=== PATIENT | female | born 1975 | race Two or more races ===

== ENCOUNTER 2017-01-04 11:19 | Day surgery (SDC) | payer BC ==
[2017-01-02 13:42] VITALS: BMI 30.9
[2017-01-04] MEDS ORDERED: BUPIVACAINE HCL/PF 0.25% (2.5MG/ML) 10 ML VIAL ONE (13:05)
[2017-01-04] MEDS ORDERED: LIDOCAINE HCL 1%, 10 MG/ML (20ML VIAL) ONE (13:05)
[2017-01-04] MEDS ORDERED: ceFAZolin SODIUM 1 GM VIAL IVPB ONE (13:39)
--- NOTE | 2017-01-04 14:33 | OP ---
Operative Note - Note: Operative Date: 01/04/17 Pre-Operative Diagnosis: ceccal polyp Operation: laparoscopic partial ceccectomy Post-Operative Diagnosis: Same as Pre-op Surgeon: Carson Álvarez Curer Acid Drum: Lizzy Cerrato Anesthesia: General Estimated Blood Loss (mls): 5 Operative Report Dictated: Yes
--- NOTE | 2017-01-04 14:54 | SURG ---
Surgery Creative Art Director Note Creative Art Director: Lizzy Cerrato PA-C Date of Service: 01/04/17 Diagnosis: ceccal polyp Procedure: laparoscopic partial ceccectomy I was present for the entirety of the operative procedure. For further detail, please refer to operative report. Visit type - Case Type Case Type: Scheduled Admission - Emergency Emergency Visit: No - New patient This patient is new to me today: Yes Date on this admission: 01/04/17 - Critical Care Critical Care patient: No
[2017-01-04] MEDS ORDERED: ONDANSETRON 4 MG/2 ML VIAL IVPUSH PRN (15:33)
[2017-01-04] MEDS ORDERED: oxyCODONE HCL 5 MG TABLET PO PRN (15:33)
[2017-01-04] MEDS ORDERED: LACTATED RINGERS SOLUTION 1,000 ML IV SCH (15:45)
[2017-01-04] MEDS ORDERED: RANITIDINE HCL 50 MG/2 ML VIAL ONE (16:26)
[2017-01-04 18:40] VITALS: BP 121/69; PULSE 86
[2017-01-04 19:58] VITALS: TEMP 98.2
--- NOTE | 2017-01-05 10:26 | OP ---
DATE OF OPERATION: 01/04/2017 PREOPERATIVE DIAGNOSIS: Cecal polyp. POSTOPERATIVE DIAGNOSIS: Cecal polyp. PROCEDURE: Laparoscopic partial cecectomy and appendectomy. SURGEON: Carson Álvarez MD SECOND RIGGER: DARRELL Dutta COMPLICATIONS: None. ESTIMATED BLOOD LOSS: Bleeding was minimal. SPECIMEN: Partial cecum and appendix. CONDITION: The patient tolerated the procedure well. INDICATION: This is a 41-year-old female who presented with a cecal polyp which was identified during colonoscopy, at the base of the appendix; for which, she was referred for surgical evaluation and resection. DESCRIPTION OF PROCEDURE: The patient was taken to the operating room and placed in supine position. After the induction of general anesthesia, she was prepped and draped in the usual sterile fashion. After a standard timeout, the operation was begun with a standard periumbilical incision which was made in the superior aspect of the umbilicus, and the standard Vandana approach was used to enter the peritoneal cavity without complications. A 12-mm port was inserted through this incision, and insufflation to a pressure of 15 mmHg was accomplished. Next, under direct vision, two 5-mm ports were introduced, one in the suprapubic position and one in the left lower quadrant. The appendix was then identified and visualized. The cecum was then mobilized in order to allow for manipulation of the cecum. The mesoappendix was divided with the LigaSure. The cecum was also mobilized with LigaSure, and then, at this point, an Endo CLARISSA stapler purple cartridge was then used to divide the base of the cecum at the level of the internal of the terminal ileum. Care was taken to avoid narrowing the terminal ileum and the ileocecal valve. The specimen was then placed in an Endo Catch bag. Final check for hemostasis performed. The ports were then removed under direct vision. Specimen was brought out through the umbilical port with an Endo Catch bag. The fascia here was closed with 0 Vicryl suture. The skin was closed with 4-0 Monocryl. Dermabond was applied, and the patient was returned to the recovery room, awake, alert, in stable condition. She tolerated the procedure well. Stefani [id number]
--- NOTE | 2017-01-06 14:40 | PATH ---
Surgical Pathology Report Patient Name: AARTI DUENAS [facility]. Rec. #: [id number] /Age/Gender: 1975 (Age: 41) / F Account: [id number] Location: [facility] SURGICAL Taken: 01/04/2017 Received: 01/05/2017 Reported: 01/06/2017 Physicians: Stefani Iverson M.D. Specimen(s) Received APPENDIX,CECUM,POLYP OF CECUM Clinical History Mass of appendix Final Diagnosis CECUM AND APPENDIX, RESECTION: APPENDIX WITH FIBROUS OBLITERATION OF THE LUMEN, AND CECUM WITH REACTIVE FOLLICULAR HYPERPLASIA OF MUCOSA ASSOCIATED LYMPHOID TISSUE. NO ADENOMATOUS POLYP IS IDENTIFIED. NO RESIDUAL SESSILE SERRATED POLYP IS IDENTIFIED. Comment: The prior specimen [id number] was reviewed. No residual polyp is identified in the current specimen. Recommend follow up as clinically indicated. Electronically Signed Esteban Arreola M.D. Gross Description Received in formalin labeled "cecum, appendix, cecal polyp," is a 3.5 x 1.7 x 1.6 cm portion of cecum with a 3 cm in length attached vermiform appendix. The cecum displays a stapled margin of resection. The serosa is potts-pink and smooth. The cecal lumen contains abundant brown-green fecal material. No mass or polyp is identified. The cecal mucosa is potts with flattened folds. Sectioning of the appendix reveals unremarkable lumen. The wall of the appendix averages 0.1 cm in thickness. The specimen is entirely submitted in 7 cassettes as follows: 1-shave of staple line; [id number] submitted cecum; [id number] submitted appendix. /01/05/2017 [facility]01/05/2017
== END 2017-01-04 18:39 | disposition home or self-care (01) ==
LOC: JASU-SURG 11:19
PROVIDERS: ATTEND Surgery
PROC: 0DTJ4ZZ Resection of Appendix, Percutaneous Endoscopic Approach (ICD-10-PCS; 2017-01-04)
PROC: 0DBH4ZZ Excision of Cecum, Percutaneous Endoscopic Approach (ICD-10-PCS; principal; 2017-01-04 13:00)
DX: D12.0 Benign neoplasm of cecum (principal); D12.1 Benign neoplasm of appendix
CPT/HCPCS: 84703; 88307-TC; 94760

== ENCOUNTER 2022-05-22 04:57 | Emergency (ER) | payer BC ==
[2022-05-22 05:13] VITALS: BP 121/82; PULSE 90; RESP 18; TEMP 98.7; BMI 32.4
[2022-05-22] MEDS ORDERED: CIPROFLOXACIN 500 MG TABLET (RESTRICTED TO ID) PO ONE (05:30)
[2022-05-22] MEDS ORDERED: PHENAZOPYRIDINE HCL 100 MG TABLET (FP) PO ONE (05:30)
[2022-05-22] MEDS ORDERED: PHENAZOPYRIDINE HCL 100 MG TABLET (FP) ONE (05:34)
[2022-05-22] MEDS ORDERED: CIPROFLOXACIN 250 MG TABLET (RESTRICTED TO ID) PO ONE (05:35)
[2022-05-22 09:40] LABS: EPITHELIAL CELLS FEW /hpf
== END 2022-05-22 05:39 | disposition home or self-care (01) ==
LOC: FER 04:57
DX: R30.0 Dysuria (principal)
CPT/HCPCS: 81003; 81015; 81025; 87086; 99283-25

== ENCOUNTER 2022-09-15 04:16 | Emergency (ER) | payer BC ==
[2022-09-15 04:24] VITALS: BMI 29.1
[2022-09-15] MEDS ORDERED: SODIUM CHLORIDE 1,000 ML IV STA (04:44)
[2022-09-15 05:54] LABS: BASO % 0.4 % (0-2.0); EOS % 1.6 % (0-4.5); HEMATOCRIT 38.1 % (32.4-45.2); MCH 28.3 pg (25.7-33.7); MEAN CELL VOLUME 83.2 fl (80-96); MEAN PLT VOLUME 9.1 fl (7.5-11.1); MONO % 6.3 % (3.8-10.2); NEUT % 76.7 % (42.8-82.8); PLATELET COUNT 223 10^3/uL (134-434); RBC 4.58 M/mm3 (3.60-5.2); RDW 14.4 % (11.6-15.6); WHITE BLOOD COUNT 11.9 K/mm3 (4.0-10.0)
[2022-09-15 06:03] LABS: INR 1.06 (0.83-1.09); PROTHROMBIN TIME (PATIENT) 12.3 SEC (9.7-13.0)
[2022-09-15 06:05] LABS: ACTIVATED PTT 26.8 SECONDS (25.2-36.5)
[2022-09-15] MEDS ORDERED: ONDANSETRON 4 MG/2 ML VIAL IVPUSH ONE (06:13)
[2022-09-15] MEDS ORDERED: morphine CARPU-JECT 4 MG/1 ML DISP.SYRIN IVPUSH ONE (06:13)
[2022-09-15] MEDS ORDERED: ONDANSETRON 4 MG/2 ML VIAL ONE (06:20)
[2022-09-15] MEDS ORDERED: morphine SULFATE 4 MG/ML VIAL ONE (06:20)
[2022-09-15 06:47] LABS: EPI CELLS 8 /uL (0-25.1); HYALINE CASTS 0 /uL (0-3.1); PH,URINE 6.5 (5.0-8.0); URINE APPEARANCE CLEAR; URINE BACTERIA 166 /uL (0-1359); URINE BILIRUBIN NEGATIVE (NEGATIVE); URINE COLOR YELLOW; URINE GLUCOSE (UA) NEGATIVE (NEGATIVE); URINE KETONE NEGATIVE (NEGATIVE); URINE LEUK ESTERASE TRACE (NEGATIVE); URINE NITRITE NEGATIVE (NEGATIVE); URINE PROTEIN NEGATIVE (NEGATIVE); URINE RBC 30 /uL (0-23.9); URINE UROBILINOGEN 0.2 mg/dL (0.2-1.0); URINE WBC 11 /uL (0-25.8)
[2022-09-15 07:15] LABS: POTASSIUM 3.3 mmol/L (3.5-5.1)
[2022-09-15 07:17] LABS: CALCIUM 9.5 mg/dL (8.5-10.1)
[2022-09-15 07:18] LABS: ALBUMIN 4.1 g/dl (3.4-5.0); BLOOD UREA NITROGEN 13.5 mg/dL (7-18)
[2022-09-15 07:21] LABS: CREATININE 0.9 mg/dL (0.55-1.3)
[2022-09-15 07:22] LABS: TOT PROT 7.5 g/dl (6.4-8.2)
[2022-09-15 07:27] LABS: BILIRUBIN,TOTAL 0.5 mg/dL (0.2-1)
[2022-09-15 08:22] VITALS: TEMP 97.9
[2022-09-15 08:43] VITALS: BP 110/70; PULSE 72; RESP 16
== END 2022-09-15 08:43 | disposition home or self-care (01) ==
LOC: JER 04:16
PROC: 3E033GC Introduction of Other Therapeutic Substance into Peripheral Vein, Percutaneous Approach (ICD-10-PCS; principal; 2022-09-15)
PROC: 3E033GC Introduction of Other Therapeutic Substance into Peripheral Vein, Percutaneous Approach (ICD-10-PCS; 2022-09-15)
PROC: 3E0337Z Introduction of Electrolytic and Water Balance Substance into Peripheral Vein, Percutaneous Approach (ICD-10-PCS; 2022-09-15)
DX: N20.1 Calculus of ureter (principal)
CPT/HCPCS: 36415; 74176-TC; 80053; 81003; 83690; 84703; 85025; 85610; 85730; 93005; 93010; 99285-25

== ENCOUNTER 2022-11-21 04:22 | Day surgery (SDC) | payer BC ==
[2022-11-15 11:26] VITALS: BMI 29.1
[2022-11-21] MEDS ORDERED: MIDAZOLAM HCL 2 MG/2 ML SINGLE DOSE VIAL ONE (15:27)
[2022-11-21 15:57] VITALS: RESP 16
[2022-11-21] MEDS ORDERED: ONDANSETRON 4 MG/2 ML VIAL ONE (16:43)
[2022-11-21 17:32] VITALS: BP 107/63; PULSE 72; TEMP 97.2
== END 2022-11-21 17:34 | disposition home or self-care (01) ==
LOC: JASU-SURG 04:22
PROVIDERS: ATTEND Urology
PROC: 0TF4XZZ Fragmentation in Left Kidney Pelvis, External Approach (ICD-10-PCS; principal; 2022-11-21 15:28)
DX: N20.0 Calculus of kidney (principal)
CPT/HCPCS: 81025

== ENCOUNTER 2023-04-20 08:14 | Emergency (ER) | payer BC ==
[2023-04-20 08:32] VITALS: BP 121/74; PULSE 78; RESP 18; TEMP 98.1; BMI 29.2
[2023-04-20] MEDS ORDERED: ACETAMINOPHEN 325 MG TABLET (FP) PO ONE (08:32)
[2023-04-20] MEDS ORDERED: ACETAMINOPHEN 325 MG TABLET (FP) ONE (08:42)
[2023-04-20 09:03] LABS: EPITHELIAL CELLS 0-5 /hpf
[2023-04-20] MEDS ORDERED: MECLIZINE HCL 25 MG TABLET (FP) PO ONE (10:33)
[2023-04-20] MEDS ORDERED: MECLIZINE HCL 25 MG TABLET (FP) ONE (10:46)
== END 2023-04-20 11:52 | disposition home or self-care (01) ==
LOC: FER 08:14
DX: N39.0 Urinary tract infection, site not specified (principal); R10.30 Lower abdominal pain, unspecified; R30.0 Dysuria
CPT/HCPCS: 74176-TC; 81003; 81015; 81025; 87086; 87186; 99284-25

== ENCOUNTER 2024-04-08 07:25 | Day surgery (SDC) | payer BC ==
[2024-04-05 15:27] VITALS: BMI 28.3
[2024-04-08 09:40] VITALS: RESP 20
[2024-04-08] MEDS ORDERED: MIDAZOLAM HCL 2 MG/2 ML SINGLE DOSE VIAL ONE ×2 (11:27→11:42)
[2024-04-08 13:27] VITALS: TEMP 97
[2024-04-08] MEDS: ONDANSETRON 4 MG/2 ML VIAL IVPUSH PRN (14:30)
[2024-04-08] MEDS ORDERED: ONDANSETRON 4 MG/2 ML VIAL ONE (14:36)
[2024-04-08 15:55] VITALS: BP 118/68; PULSE 75
== END 2024-04-08 15:10 | disposition home or self-care (01) ==
LOC: JASU-SURG 07:25
PROVIDERS: ATTEND Urology
PROC: 0TF6XZZ Fragmentation in Right Ureter, External Approach (ICD-10-PCS; principal; 2024-04-08 11:30)
DX: N20.0 Calculus of kidney (principal)